=== PATIENT | male | born 1940 | race Caucasian/White ===

== ENCOUNTER 2016-09-25 10:30 | Day surgery (SDC) | payer MEDICARE, BC ==
[2016-09-24 11:50] VITALS: BMI 18.3
[~2016-09-25 10:30] MED LIST: LACTATED RINGERS 1,000 ML IV SCH
[2016-09-25 11:58] VITALS: TEMP 97.8
[2016-09-25] MEDS ORDERED: LIDOCAINE 1% 20 ML VIAL (10MG/ML) FOR IV START INTRADERMA ONE (12:09)
[2016-09-25] MEDS ORDERED: PROPOFOL 10 MG/ML 20 ML VIAL IV ONE (12:41)
[2016-09-25] MEDS ORDERED: hydrALAZINE HCL 20 MG/ML 1 ML VIAL ONE (12:41)
--- NOTE | 2016-09-25 13:10 | P.PCN ---
Date of Procedure: 09/25/16 Preoperative Diagnosis: Postoperative Diagnosis: Procedure(s) Performed: Brief history: Patient is a pleasant 76-year-old white male, scheduled for an elective upper endoscopy as well as colonoscopy as a part of evaluation of chronic diarrhea, abdominal pain and progressive weight loss for the last 6 months duration. He has bowel movements between 5-6 a day, loose to watery in consistency, no blood in the stool. He lost 25 pounds since onset of the symptoms. Procedure performed: Esophagogastroduodenoscopy with biopsy Colonoscopy with biopsy Preoperative diagnosis: Abdominal pain Chronic diarrhea and progressive weight loss Anesthesia: MAC Procedure: After informed consent was obtained from the patient was brought into the endoscopy unit and IV sedation was administered by anesthesia under continuous monitoring. Initially upper endoscopy was done. The Olympus GF 160 video endoscope was inserted inserted into the mouth and esophagus intubated without any difficulty and was gradually advanced into the stomach and duodenum and carefully examined. The bulb and second part of the duodenum appeared normal. There are scattered diverticulosis noted in the second/third part of the duodenum. Biopsies were done from the duodenum to evaluate for celiac disease. The scope was then withdrawn into the stomach adequately insufflated with air and upon careful examination was performed. The antrum had scattered erosions and biopsies were done from this area. The body, cardia and fundus appeared normal. The scope was then withdrawn into the esophagus. The GE junction was located at 40 cm to the incisors. It appeared regular with no erythema erosions or ulcerations. Rest of the esophagus appeared normal. Patient tolerated the procedure well. At this time the patient continued to remain sedation. Initial digital rectal examination was normal. Olympus CF 160 video colonoscope was then inserted into the rectum and gradually advanced to the cecum without any difficulty. Careful examination was performed as the scope was gradually being withdrawn. The prep was excellent. The cecum, ascending colon, transverse colon, descending colon, sigmoid colon and rectum appeared normal. Scattered diffuse diverticulosis seen. Random biopsies were done from ascending and descending colon to rule out microscopic/collagenous colitis. Retroflexion was performed in the rectum and grade 2 internal hemorrhoids were noted. Patient tolerated the procedure well. Impression: 1. Upper endoscopy revealed duodenal diverticulosis, mild antral gastritis. 2. Colonoscopy revealed scattered diffuse diverticulosis and small internal hemorrhoids. No evidence of colitis or colorectal neoplasia. Recommendations: Findings of this examination were discussed with the patient as well as his family. He was advised to follow with the biopsy results and he'll be seen in office in 2-3 weeks.] Implants: Indications for Procedure: Operative Findings: Description of Procedure:
[2016-09-25 13:12] VITALS: RESP 18
[2016-09-25 13:30] VITALS: BP 151/77; PULSE 67
== END 2016-09-25 13:46 | disposition home or self-care (01) ==
LOC: ORWHC2ENDO 10:30
PROVIDERS: ATTEND Internal Medicine Gastroenterology
DX: K57.10 Diverticulosis of small intestine without perforation or abscess without bleeding (principal); K57.30 Diverticulosis of large intestine without perforation or abscess without bleeding; K29.70 Gastritis, unspecified, without bleeding; K64.1 Second degree hemorrhoids; E78.5 Hyperlipidemia, unspecified; Z85.118 Personal history of other malignant neoplasm of bronchus and lung; Z72.0 Tobacco use; F03.90 Unspecified dementia, unspecified severity, without behavioral disturbance, psychotic disturbance, mood disturbance, and anxiety; F39 Unspecified mood [affective] disorder; Z79.82 Long term (current) use of aspirin; Z79.899 Other long term (current) drug therapy
CPT/HCPCS: 88305; 45380; 43239; J0360; J2704

== ENCOUNTER → 2017-12-10 | Outpatient (CLI) | payer MEDICARE, BC ==
--- NOTE | 2017-12-15 11:49 | CT ---
EXAMINATION TYPE: CT chest w con DATE OF EXAM: 12/10/2017 COMPARISON: 06/01/2016 HISTORY: Follow up to lung CA CT DLP: 514 mGycm, Automated exposure control for dose reduction was used. CONTRAST: Performed injected with 100 mL of Isovue 300. TECHNIQUE: Axial images were obtained at 5 mm thick sections. Reconstructed images are reviewed on [employer] computer in the coronal plane. FINDINGS: Portion of the thyroid visualized is normal. No suspicious lung nodules or focal infiltrates are present. Emphysematous changes are evident. There is a focus of increased density in the posterior right midlung which is nonspecific. However, this i s a new finding from comparison. The patient's history metastatic disease is not excluded. Series 4 i mage 34. Stable punctate 0.3 cm nodule posterior lateral left lung base. Series 2 is present previous ly. The previous right lower lobe spiculated mass adjacent to the thoracic spine Current examination. There multiple shotty lymph nodes within the superior mediastinum and pretracheal space. At the leve l of the evelyn there is a 1.0 cm pretracheal lymph node. This has enlarged from the comparison. No e nlarged hilar adenopathy. No additional enlarged adenopathy is evident. The ascending aorta diameter at the level of the main pulmonary artery is 3.2 cm. The main pulmonary artery diameter at the bifurcation is 2.[address] sections are obtained through the upper abdomen. Abdomen is essentially unremarkable. Adre nal gland is stable. IMPRESSIONS: 1. Interval development of some pneumonitis type change in the posterior right midlung. This is near the patient's previous cancer could be related to surgery. Monitoring is recommended. 2. No enlarging or new appearing additional nodules are evident. 3. Enlarging pretracheal mediastinal lymph node currently measuring 1.0 cm. Additional shotty lymphad enopathy is present within the mediastinum discussed above.
== END | disposition home or self-care (01) ==
LOC: RADCTMAIN 11:06
PROVIDERS: ATTEND Internal Medicine
DX: C34.90 Malignant neoplasm of unspecified part of unspecified bronchus or lung (principal); J18.9 Pneumonia, unspecified organism; R59.0 Localized enlarged lymph nodes; Z13.89 Encounter for screening for other disorder
CPT/HCPCS: 82565; 84520; 71260; 36415; Q9967

== ENCOUNTER → 2018-01-08 | Outpatient (CLI) | payer MEDICARE, BC ==
--- NOTE | 2018-01-09 16:38 | PE ---
EXAMINATION TYPE: PET CT fusion skull to thigh DATE OF EXAM: 01/08/2018 COMPARISON: Chest CT 02/19/2018 Prior PET/CT: None HISTORY: Lung cancer TECHNIQUE: Following the intravenous administration of 13.205 mCi of F-18 FDG, whole body images are performed from the skull base to the midthigh. Images are reviewed on the computer in the coronal, axial, and sagittal planes. Reconstructed rotating images are created on independent workstation and reviewed on the computer. A localization and attenuation correction CT is performed in conjunction with the PET scan. DLP: 244.69 mGycm SCAN: Initial Blood glucose: 85 mg/dL Average Mediastinum SUV: 1.57 Average Liver SUV: 2.2 FINDINGS: NECK: No abnormal uptake THORAX: No abnormal uptake. The area of pneumonitis is too indistinct for PET CT evaluation. Mediasti nal lymph node in the pretracheal space above the evelyn does not have elevated SUV by PET/CT. Interm ediate 1.35. ABDOMEN: No abnormal uptake PELVIS: No abnormal uptake OSSEOUS STRUCTURES: No abnormal uptake LOCALIZATION CT: Ascending thoracic aorta at the level the main pulmonary artery is 3.5 cm patent shane n pulmonary bifurcation is 2.3 cm. Shotty lymphadenopathy is within the mediastinum. Moderate severe coronary artery calcifications present. Adrenal glands appear unremarkable. Diverticular changes are present within the colon without evidence of acute diverticulitis. Emphysematous changes are within t he lung [place]. COMPARISON: Area of pneumonitis is again identified within the posterior right midlung. SUV value is low measuring 0.93 cm. This could be inflammatory in nature. Given the pneumonitis type appearance, t his may be below the threshold for detection for PET CT and monitoring is recommended. In addition co ntinued change additional workup could be performed. Punctate nodule within the periphery of the left lung base is too small to classify this has an SUV value of 0.43. Suspicious uptake within the enlar ging mediastinal lymph node is not identified. SUV value is 1.35. IMPRESSION: 1. No suspicious uptake to suggest primary or metastatic neoplasm. 2. Findings within the lung [place] are likely below the threshold for PET CT evaluation. Monitoring w ith CT chest is recommended. 3. The enlarged 1.0 cm lymph node appears less prominent on the current examination and has intermedi ate signal 1.35 SUV. Monitoring with chest CT is recommended.
== END | disposition home or self-care (01) ==
LOC: RADPETMAIN 14:07
PROVIDERS: ATTEND Internal Medicine Pulmonary Disease
DX: C34.31 Malignant neoplasm of lower lobe, right bronchus or lung (principal); R59.0 Localized enlarged lymph nodes
CPT/HCPCS: 78815; A9552

== ENCOUNTER → 2019-06-24 | Outpatient (CLI) | payer MEDICARE, BC ==
--- NOTE | 2019-06-26 13:42 | PE ---
Nuclear medicine PET/CT HISTORY: Lung cancer, subsequent Patient received 11.1 mCi F-18 FDG intravenously in delayed scanning was performed from skull base to the mid thighs. Localization and attenuation correction CT scan was performed. Correlation to prior nuclear medicine PET/CT 01/08/2018 neck and CHEST: In the right lower lobe there is a smoothly marginated subpleural nodule which extend s into the pleural margin and intercostal space measuring approximately 2 cm in size, there is associ ated hypermetabolic uptake, SUV 6.6. There is no pleural or pericardial effusion. No mediastinal, axi llary, or hilar adenopathy, no supraclavicular or cervical adenopathy. ABDOMEN: There is no adrenal mass, no liver mass, no retroperitoneal adenopathy or suspicious hyperme tabolic uptake. Extensive diverticular change associated with the sigmoid colon. Patient is likely po st prostatectomy. Osseous structures: There is a lytic lesion involving the acetabulum on the left anteriorly which has developed in the interval, there is associated hypermetabolic uptake, SUV is 14.2. IMPRESSION: Findings consistent with metastatic disease. Lesion in the left acetabulum would be breann ble to biopsy should be requested.
== END | disposition home or self-care (01) ==
LOC: RADPETMAIN 13:15
PROVIDERS: ATTEND Internal Medicine Hematology & Oncology
DX: M25.852 Other specified joint disorders, left hip (principal); C34.31 Malignant neoplasm of lower lobe, right bronchus or lung
CPT/HCPCS: 78815; A9552

== ENCOUNTER → 2019-08-01 | Outpatient (CLI) | payer MEDICARE, BC ==
--- NOTE | 2019-08-01 13:37 | MR ---
EXAMINATION TYPE: MR brain wo/w con DATE OF EXAM: 08/01/2019 1:29 PM COMPARISON: NONE HISTORY: Lung CA CONTRAST: Patient received 6.5 mL intravenous Gadavist gadolinium contrast. Multiplanar and multispin-echo imaging of the brain was performed . Pre and post contrast enhanced i mages are obtained. The ventricles, basal cisterns and sulci overlying the cerebral convexities are mildly enlarged. There is evidence of mild periventricular white matter ischemic demyelination. Remote deep white matter insults are also noted. Remote insult left temporal lobe. No acute edema is seen on diffusion weighted imaging. There is no evidence for midline shift or mass effect. Acute intracranial hemorrhage or extra-axial collection is not evident. No enhancing lesions are seen. The paranasal sinuses and mastoid air cells are well-aerated. IMPRESSION: Age-related atrophic and chronic small vessel ischemic change. No acute intracranial process at this time. No enhancing lesions are seen.
== END | disposition home or self-care (01) ==
LOC: RADMRIMAIN 11:35
PROVIDERS: ATTEND Radiology Radiation Oncology
DX: I67.82 Cerebral ischemia (principal); G31.1 Senile degeneration of brain, not elsewhere classified; F17.210 Nicotine dependence, cigarettes, uncomplicated; C79.51 Secondary malignant neoplasm of bone; C34.31 Malignant neoplasm of lower lobe, right bronchus or lung; Z92.3 Personal history of irradiation
CPT/HCPCS: 70553; A9585

== ENCOUNTER → 2019-09-15 | Outpatient (CLI) | payer MEDICARE, BC ==
--- NOTE | 2019-09-17 13:42 | PE ---
EXAMINATION TYPE: PET CT fusion skull to thigh DATE OF EXAM: 09/15/2019 COMPARISON: CT chest 12/10/2017 Prior PET/CT: 08/01/2019 HISTORY: C 34.31, lung cancer, left hip cancer TECHNIQUE: Following the intravenous administration of 11.99 mCi of F-18 FDG, whole body images are performed from the skull base to the midthigh. Images are reviewed on the computer in the coronal, a xial, and sagittal planes. Reconstructed rotating images are created on independent workstation and reviewed on the computer. A localization and attenuation correction CT is performed in conjunction with the PET scan. DLP: 310.97 mGycm SCAN: Subsequent Blood glucose: 96 mg/dL Average Mediastinum SUV: 1.21 Average Liver SUV: 1.68 FINDINGS: NECK: No suspicious radiotracer accumulation. THORAX: There is a small area of increased signal within the mid posterior esophageal region which is nonspecific. Some mild inflammatory change should be considered. Consider reflux. SUV values 1.7. On the sagittal plane images this appears more elongated and less suggestive for early metastasis. There is a focus of radiotracer in the subcarinal region. The SUV value 1.9 appears focal with a smal l lymph node. A small metastasis should be considered. Image 90. There is some thickening along the pleural margin with increased radiotracer along posterior right mi dlung. This has an SUV value of 2.65 which can be compatible with neoplasm. Image 93. Previous value 6.26. Some additional less specific increased uptake is within the posterior area of increased densit y in the right lung. Image 102. This has an SUV value of 1.65 but can be suspicious for metastasis. M ild uptake is within the pleural margin adjacent to these regions. ABDOMEN: No abnormal uptake PELVIS: No abnormal uptake within the soft tissues. Please see osseous structures for additional disc ussion. OSSEOUS STRUCTURES: There is intense uptake within the superior left acetabulum with an SUV value of 11.04. This is diminished from 06/24/2019 with an SUV value of 12.69 This is compatible with a large m etastatic lesion. This corresponds to the lytic lesion on the bone windows of the localization CT. LOCALIZATION CT: The lytic lesion is evident within the superior anterior left acetabulum. COMPARISON: Radiotracer within the posterior right pleural margin is diminished in intensity over the interval. The radiotracer at the subcarinal region appears to be an interval development. What is schaeffer spected be within the esophagus although other etiologies are within the differential also appears to be new. Acetabular uptake previously had an SUV value of 12.69. IMPRESSION: 1. Stable appearance of left acetabular metastatic lesion. 2. Diminished radiotracer accumulation within the posterior right pleural margin neoplasm. 3. Interval development of some very mild intermediate to slight increased uptake within the subcarin al lymph node and either early changes within the posterior mediastinal lymph node or the esophagus.
== END | disposition home or self-care (01) ==
LOC: RADPETMAIN 09:09
PROVIDERS: ATTEND Internal Medicine Hematology & Oncology
DX: C79.51 Secondary malignant neoplasm of bone (principal); R59.9 Enlarged lymph nodes, unspecified; C34.31 Malignant neoplasm of lower lobe, right bronchus or lung
CPT/HCPCS: 78815; A9552

== ENCOUNTER → 2019-12-01 | Outpatient (CLI) | payer MEDICARE, BC ==
--- NOTE | 2019-12-02 15:28 | PE ---
EXAMINATION TYPE: PET CT fusion skull to thigh DATE OF EXAM: 12/01/2019 COMPARISON: CT chest 12/10/2017 Prior PET/CT: 09/15/2019 HISTORY: Right lung cancer TECHNIQUE: Following the intravenous administration of 10.87 mCi of F-18 FDG, whole body images are performed from the skull base to the midthigh. Images are reviewed on the computer in the coronal, a xial, and sagittal planes. Reconstructed rotating images are created on independent workstation and reviewed on the computer. A localization and attenuation correction CT is performed in conjunction with the PET scan. DLP: 286.50 mGycm SCAN: Subsequent Blood glucose: 99 mg/dL Average Mediastinum SUV: 1.49 Average Liver SUV: 1.85 FINDINGS: NECK: There is a right supraclavicular lymph node with an SUV value 5.95 suspicious for metastatic d isease. Image 70. There is a right paratracheal lymph node in the supraclavicular region with an SUV value 8.68 suspicious for metastatic disease. Image 75. An adjacent superior mediastinal lymph node i s present on PET image 77, SUV value 7.03. THORAX: A posterior focus of radiotracer accumulation is present may be within the esophagus or withi n the posterior lymph node. Image 91. SUV value 8.81. Pretracheal lymph node has increased uptake with an SUV value of 3.5. PET i mage 97. Prominent subcarinal lymph node has SUV value 9.77. Image 104. There is mild infiltrate along the posterior right midlung with intermediate signal likely inflammato ry in nature. Correlate for atelectasis. ABDOMEN: No abnormal uptake PELVIS: No abnormal uptake OSSEOUS STRUCTURES: There is a focus of radiotracer accumulation within the right aspect of the right sided L1 vertebral body with an SUV value of 13.32. This correlates with a lytic lesion CT. There is a focus of radiotracer accumulation within the anterior superior iliac spine, image 200 SUV value 3. 84. Marked increase signal is within the anterior left superior acetabular region compatible for meta static lesion measuring 14.25 SUV. This correlates with a lytic lesion on bone imaging LOCALIZATION CT: Lytic lesions correspond to the areas of radiotracer accumulation within the osseous structures. COMPARISON: Supraclavicular adenopathy mediastinal adenopathy is new. Subtle uptake may have been pre sent previously within the subcarinal region. Previous increased uptake has more intermediate signal within the posterior right midlung on the current exam. Osseous metastases within the vertebral body is new. Left ileal lesion is larger on the current exam. IMPRESSION: 1. New left supraclavicular and superior mediastinal lymphadenopathy. 2. Increased uptake in a subcarinal lymph node. 3. There may be some new posterior mediastinal lymphadenopathy. 4. Increased size of left acetabular lytic lesion. 5. New L1 vertebral body lytic lesion.
== END | disposition home or self-care (01) ==
LOC: RADPETMAIN 08:43
PROVIDERS: ATTEND Internal Medicine Hematology & Oncology
DX: R59.0 Localized enlarged lymph nodes (principal); M25.859 Other specified joint disorders, unspecified hip; C34.31 Malignant neoplasm of lower lobe, right bronchus or lung
CPT/HCPCS: 78815; A9552

== ENCOUNTER → 2020-01-04 | Outpatient (CLI) | payer MEDICARE, BC | END | disposition home or self-care (01) | LOC: LABWHC1 12:38 | PROVIDERS: ATTEND Internal Medicine Hematology & Oncology | DX: Z03.818 Encounter for observation for suspected exposure to other biological agents ruled out (principal) | CPT/HCPCS: U0003; C9803 ==

== ENCOUNTER → 2020-01-09 | Outpatient (CLI) | payer MEDICARE, BC | END | disposition home or self-care (01) | LOC: LABWHC1 10:12 | PROVIDERS: ATTEND Internal Medicine Hematology & Oncology | DX: Z03.818 Encounter for observation for suspected exposure to other biological agents ruled out (principal) | CPT/HCPCS: U0003 ×2; C9803 ×2 ==

== ENCOUNTER 2020-01-15 08:41 | Emergency (ER) | payer MEDICARE, BC ==
[2020-01-15] MEDS ORDERED: SODIUM CHLORIDE 0.9% 500 ML 500 ML IV STA (09:04)
[2020-01-15] MEDS ORDERED: MORPHINE SULFATE 4 MG/ML SYRINGE IV STA (09:04)
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
[2020-01-15 09:24] LABS: Basophils % (A) 0 %; Eosinophils # (A) 0.2 k/uL (0-0.7); Eosinophils % (A) 2 %; HCT 46.5 % (39.0-53.0); HGB 15.1 gm/dL (13.0-17.5); Lymphocytes # (A) 0.6 k/uL (1.0-4.8); Lymphocytes % (A) 6 %; MCH 29.7 pg (25.0-35.0); MCHC 32.6 g/dL (31.0-37.0); Mean Platelet Volume 7.3; Monocytes # (A) 0.1 k/uL (0-1.0); Monocytes % (A) 1 %; Neutrophils # (A) 9.4 k/uL (1.3-7.7); Neutrophils % (A) 90 %; Platelet Count 321 k/uL (150-450); RBC 5.11 m/uL (4.30-5.90); RDW 13.4 % (11.5-15.5); WBC 10.4 k/uL (3.8-10.6)
[2020-01-15 09:33] LABS: ALT 21 U/L (4-49); AST 28 U/L (17-59); African American GFR (CKD) >90 (>60 ml/min/1.73 sqM); Alkaline Phosphatase 113 U/L (38-126); Amylase 206 U/L (30-110); Anion Gap 10 mmol/L; Blood Urea Nitrogen 20 mg/dL (9-20); Carbon Dioxide 25 mmol/L (22-30); Chloride 103 mmol/L (98-107); Glucose 114 mg/dL (74-99); Non-African American GFR(CKD) 83 (>60 ml/min/1.73 sqM); Potassium 4.5 mmol/L (3.5-5.1); Sodium 138 mmol/L (137-145); Total Bilirubin 0.6 mg/dL (0.2-1.3); Total Protein 7.2 g/dL (6.3-8.2)
[2020-01-15 09:37] LABS: Partial Thromboplastin Time 23.3 sec (22.0-30.0); Prothrombin Time 9.9 sec (9.0-12.0)
--- NOTE | 2020-01-15 10:28 | CT ---
EXAMINATION TYPE: CT abdomen pelvis w con DATE OF EXAM: 01/15/2020 COMPARISON: PET CT fusion 12/01/2019 HISTORY: abdominal pain CT DLP: 648.1 mGycm CONTRAST: CT scan of the abdomen and pelvis is performed without Oral Contrast and with IV Contrast, patient in jected with 100 mL of Isovue 300. FINDINGS: LUNG BASES-: No visible nodule. Right basilar pleural thickening noted. LIVER/GB: No calcified gallstones. No space occupying hepatic lesion. Biliary tree is of normal ca liber. PANCREAS: No inflammation. No distinct mass. SPLEEN: No splenic enlargement. No lesion seen. ADRENALS: No nodule. No thickening. KIDNEYS/BLADDER: No hydronephrosis. No nephrolithiasis. No distinct renal mass. Urinary bladder g rossly unremarkable. BOWEL: Nonvisualization of the appendix. Moderate sigmoid diverticulosis without diverticulitis. Mild fluid distended small bowel is nonspecific. Correlate for enteritis. No inflammation. GENITAL ORGANS: No gross abnormality. LYMPH NODES: No greater than 1cm abdominal or pelvic lymph nodes are appreciated. AORTA: No significant abnormality. OSSEOUS STRUCTURES: Destructive left acetabular lesion. Left iliac lesion. Right L1 vertebral body le chidi. OTHER: No significant additional abnormality is seen. IMPRESSION: 1. Mild fluid distended small bowel is nonspecific. Correlate for enteritis. 2. Osseous metastatic disease.
--- NOTE | 2020-01-15 10:32 | XR ---
EXAMINATION TYPE: XR KUB DATE OF EXAM: 01/15/2020 10:04 AM CLINICAL HISTORY: History of lung cancer on chemotherapy with abdominal pain. TECHNIQUE: Two Upright KUB images of the abdomen are obtained. COMPARISON: Same day CT. FINDINGS: Scattered gas is seen in non-distended stomach and small bowel loops. Gas and fecal materia l is seen in non-distended colon. Surgical clips in the bilateral pelvis are redemonstrated. No pneum operitoneum. Suspect tiny right pleural effusion or pleural thickening. Multilevel spurring in the vi sualized spine. IMPRESSION: Overall nonobstructive bowel gas pattern.
[2020-01-15 10:35] LABS: Appearance,Urine Clear (Clear); Bilirubin,Urine Negative (Negative); Blood,Urine Small (Negative); Color,Urine Light Yellow; Glucose,Urine (UA) Negative (Negative); Ketones,Urine 1+ (Negative); Leukocyte Esterase,Urine Negative (Negative); Mucus,Urine Rare /hpf; Nitrite,Urine Negative (Negative); Protein,Urine Negative (Negative); RBC,Urine 2 /hpf (0-5); Specific Gravity,Urine 1.016 (1.001-1.035); Urobilinogen,Urine <2.0 mg/dL (<2.0); WBC,Urine 1 /hpf (0-5)
[2020-01-15] MEDS ORDERED: MORPHINE SULFATE 4 MG/ML SYRINGE IV PRN (10:48)
[2020-01-15] MEDS ORDERED: ONDANSETRON 4 MG/2 ML VIAL IVP PRN (10:48)
[2020-01-15] MEDS ORDERED: NALOXONE 0.4 MG/ML 1 ML VIAL IV PRN (10:48)
[2020-01-15] MEDS ORDERED: ACETAMINOPHEN TAB 325 MG TAB PO PRN (10:48)
[2020-01-15] MEDS ORDERED: SODIUM CHLORIDE 0.9% 1,000 ML IV SCH (11:00)
[2020-01-15 13:01] VITALS: BP 154/69; PULSE 72; RESP 16; TEMP 98.8
== END 2020-01-15 13:08 | disposition other institution (70) ==
LOC: EC 08:41 → 6NMEDSUR 10:49 → UNDOADMIN 10:49 → EC 13:08
DX: K52.9 Noninfective gastroenteritis and colitis, unspecified (principal); E86.0 Dehydration; I10 Essential (primary) hypertension; C34.90 Malignant neoplasm of unspecified part of unspecified bronchus or lung; F17.200 Nicotine dependence, unspecified, uncomplicated; Z79.82 Long term (current) use of aspirin; Z79.899 Other long term (current) drug therapy
CPT/HCPCS: 99285; 96374; 96361 ×3; 36415; 80053; 82150; 83605; 83690; 85025; 85610; 85730; 81001; 74018; 74177; J2270; Q9967

== ENCOUNTER 2020-01-16 17:08 | Inpatient (IN) | payer MEDICARE, BC ==
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
[2020-01-16] MEDS ORDERED: ONDANSETRON 4 MG/2 ML VIAL IVP STA (17:41)
[2020-01-16] MEDS ORDERED: SODIUM CHLORIDE 0.9% 1,000 ML IV STA (17:41)
[2020-01-16] MEDS ORDERED: PANTOPRAZOLE 40 MG/10 ML VIAL IVP STA (17:41)
[2020-01-16] MEDS ORDERED: ONDANSETRON 4 MG/2 ML VIAL IVP PRN (17:42)
[2020-01-16] MEDS ORDERED: LORazepam 2 MG/ML INJ IV PRN (17:42)
[2020-01-16] MEDS ORDERED: HYDROmorphone 1 MG/ML 1 ML SYRINGE IVP PRN (17:42)
[2020-01-16] MEDS ORDERED: NALOXONE 0.4 MG/ML 1 ML VIAL IV PRN (17:42)
[2020-01-16 18:20] LABS: Basophils % (A) 0 %; Eosinophils # (A) 0.1 k/uL (0-0.7); Eosinophils % (A) 1 %; HCT 42.7 % (39.0-53.0); Lymphocytes # (A) 0.4 k/uL (1.0-4.8); Lymphocytes % (A) 3 %; MCH 29.1 pg (25.0-35.0); MCHC 32.8 g/dL (31.0-37.0); MCV 88.8 fL (80.0-100.0); Mean Platelet Volume 7.3; Monocytes # (A) 0.2 k/uL (0-1.0); Monocytes % (A) 1 %; Neutrophils % (A) 94 %; Platelet Count 291 k/uL (150-450); RBC 4.81 m/uL (4.30-5.90); WBC 12.7 k/uL (3.8-10.6)
[2020-01-16 18:28] LABS: ALT 16 U/L (4-49); AST 24 U/L (17-59); African American GFR (CKD) >90 (>60 ml/min/1.73 sqM); Albumin 3.6 g/dL (3.5-5.0); Alkaline Phosphatase 94 U/L (38-126); Amylase 79 U/L (30-110); Anion Gap 6 mmol/L; Blood Urea Nitrogen 27 mg/dL (9-20); Calcium 8.9 mg/dL (8.4-10.2); Carbon Dioxide 26 mmol/L (22-30); Chloride 102 mmol/L (98-107); Glucose 127 mg/dL (74-99); Non-African American GFR(CKD) >90 (>60 ml/min/1.73 sqM); Potassium 4.6 mmol/L (3.5-5.1); Sodium 134 mmol/L (137-145); Total Bilirubin 0.6 mg/dL (0.2-1.3); Total Protein 6.4 g/dL (6.3-8.2)
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
[2020-01-17] MEDS: SODIUM CHLORIDE 0.9% 1,000 ML IV SCH ×2 (05:21→09:44)
[2020-01-17] MEDS ORDERED: traMADol 50 MG TAB PO PRN (05:30)
[2020-01-17] MEDS: lisinopriL 20 MG TAB PO SCH (06:00)
[2020-01-17] MEDS: HYDROmorphone 0.5 MG/0.5 ML SYRINGE IVP PRN ×4 (06:06→20:20)
[2020-01-17 08:54] LABS: RBC 4.72 m/uL (4.30-5.90); WBC 9.9 k/uL (3.8-10.6)
[2020-01-17 08:55] LABS: Basophils % (A) 0 %; Eosinophils # (A) 0.2 k/uL (0-0.7); Eosinophils % (A) 2 %; HCT 43.2 % (39.0-53.0); HGB 13.8 gm/dL (13.0-17.5); Lymphocytes # (A) 0.7 k/uL (1.0-4.8); Lymphocytes % (A) 7 %; MCH 29.1 pg (25.0-35.0); MCHC 31.8 g/dL (31.0-37.0); MCV 91.5 fL (80.0-100.0); Mean Platelet Volume 7.1; Monocytes # (A) 0.2 k/uL (0-1.0); Monocytes % (A) 2 %; Neutrophils # (A) 8.8 k/uL (1.3-7.7); Neutrophils % (A) 89 %; Platelet Count 283 k/uL (150-450); RDW 13.2 % (11.5-15.5)
[2020-01-17] MEDS: PANTOPRAZOLE 40 MG/10 ML VIAL IV SCH (09:36)
[2020-01-17] MEDS: HEPARIN SODIUM,PORCINE 5,000 UNIT/ML 1 ML VIAL SQ SCH ×3 (09:36→23:28)
[2020-01-17 12:57] VITALS: BMI 21.6
[2020-01-17] MEDS: LACTULOSE 20 GM/30 ML CUP PO SCH ×2 (13:11→22:31)
--- NOTE | 2020-01-17 15:21 | P.PN ---
Subjective Progress Note Date: 01/17/20 This is an 79 year old male with a previous medical history significant for hypertension and hypertensive cardiovascular disease, was diagnosed with with non small cell lung cancer in 2018 and underwent right lower lobectomy, and has done well till he was diagnosed with bone mets thought to be single lesion initially and was treated with radiation therapy, then he was confirmed to have metastatic disease and he was supposed to start chemotherapy in august but it was delayed due to concerns of COVID-19, finally was started on Alimta Keytruda, and I believe Taxotere on Wednesday as the first treatment, later on Wednesday he developed to have increased abdominal pain in the epigastric area then moved to the left lower quadrant with increased nausea, and vomiting, was not able to keep anything down, and was associated with diarrhea, he came to the ER Yesterday and had a CT scan of the abdomen and pelvis with contrast that showed non specific enetrits, and his Lipase was elevated he was advised to stay but he decided to leave, went and saw today and he was sent back to the ER for admission for acute pancreatitis and he was started on IV fluids and pain medications. 01/16: Patient has been afebrile, heart rate 70, blood pressure 146/71, pulse ox 96% on room air. Repeat CBC reveals normal WBC at 9.9, hemoglobin 13.8, platelet count 283. Consult in place with oncology. Patient is currently on a clear liquid diet and tolerating well. No nausea or vomiting at this time. He has had a bowel movement after lactulose was started today and he is feeling much better following that. Bowel movement was formed. No diarrhea. Incentive spirometry added as well as consult with PT and OT. Fentanyl patch was applied in the emergency center on January 14. Patient is due for a new patch tomorrow which will be ordered. Anticipate possible discharge in the next 24-48 hours depending on how patient progresses. Objective - Vital Signs Vital signs: Vital Signs Temp 98.1 F 01/17/20 12:05 Pulse 70 01/17/20 12:05 Resp 16 01/17/20 12:05 BP 146/71 01/17/20 12:05 Pulse Ox 96 01/17/20 12:05 Intake & Output 01/16/20 01/17/20 01/17/20 18:59 06:59 18:59 Intake Total 1000 Balance 1000 Weight 58.967 kg 58.967 kg Intake: Intake, IV Titration 1000 Amount Sodium Chloride 0.9% 1, 1000 000 ml @ 130 mls/hr IV . [id number] STA Rx#:[id number] Other: Voiding Method Toilet # Voids 1 - Exam Review of Systems Constitutional: Reports anorexia, Reports fatigue, Reports weakness Eyes: denies blurred vision, denies bulging eye, denies decreased vision Ears, nose, mouth and throat: Denies dysphagia, Denies neck lump, Denies sore throat Cardiovascular: Denies chest pain, Denies decreased exercise tolerance, Denies dyspnea on exertion, Denies lightheadedness, Denies rapid heart beat, Denies shortness of breath, Denies syncope Respiratory: Denies congestion, Denies cough, Denies cough with sputum, Denies home oxygen, Denies sleep apnea, Denies snoring, Denies wheezing Gastrointestinal: Reports abdominal painimproving, Reports change in bowel habits, denies diarrhea, Reports dyspepsia, Reports indigestion, Reports loss of appetite, denies nausea, denies vomiting, Denies belching, Denies bloating, Denies hematemesis, Denies hematochezia, Denies jaundice, Denies lactose intolerance, Denies melena Genitourinary: Reports nocturia, Denies dysuria Musculoskeletal: Reports muscle weakness, Denies fractures, Denies frequent falls, Denies low back pain Musculoskeletal: right: shoulder pain, shoulder stiffness, absent: ankle pain, ankle stiffness, ankle swelling, elbow pain, elbow stiffness, elbow swelling, foot pain, foot stiffness, foot swelling, hand pain, hand stiffness, hand swelling, hip pain, hip stiffness, hip swelling, knee pain, knee stiffness, shoulder swelling, wrist pain, wrist stiffness, wrist swelling Integumentary: Denies pruritus, Denies rash Neurological: Denies numbness, Denies weakness Psychiatric: Denies anxiety, Denies depression Endocrine: Denies fatigue, Denies weight change Physical Examination HEENT: head is atraumatic normocephalic pupils were equal round reactive to light and accommodations extra ocular muscle movements were intact. Neck: supple, no JVP. Chest: decrease breath sounds at the bases with few ronchi no expiratory wheezes, no chest wall tenderness or intercostal retraction. Heart: first heart sound is depressed, second heart sound is normal there is CASSIE 2/6 located in the left sternal border. Abdomen: soft, no tenderness, no rebound or guarding positive bowel sounds. Extremities: there is no edema or calf tenderness DP +1 Bilaterally. Neurologic examination: patient is awake alert and oriented X 3 CN II-XII are grossly intact muscle power 4/5 in upper and lower extremities bilaterally. - Labs CBC & Chem 7: 01/17/20 08:14 01/16/20 18:08 Labs: Abnormal Lab Results - Last 24 Hours (Table) 01/16/20 01/16/20 01/17/20 Range/Units 18:08 18:08 08:14 WBC 12.7 H (3.8-10.6) k/uL Neutrophils # 12.0 H 8.8 H (1.3-7.7) k/uL Lymphocytes # 0.4 L 0.7 L (1.0-4.8) k/uL Sodium 134 L (137-145) mmol/L BUN 27 H (9-20) mg/dL Glucose 127 H (74-99) mg/dL Assessment and Plan Plan: 1. Acute abdominal pain due to acute pancreatitis post chemotherapy as a possible side effects of Alimta with non specific enteritis. Continue IVF normal saline at 100 ml/h, we will continue with clear liquids, and Zofran 4 mg IVP Q 6 hours as needed, we will continue with current pain management. Patient improved following bowel movement and lactulose. 2. Leukocytosis likely reactive to pancreatitis . we will continue with IVF and we will repeat cbc in AM. 4. Mild hyponatremia due to hypovolemia and poor oral intake of fluid. we will continue with IVF and repeat CMP in AM. 5. Metastatic non small cell lung cancer to the left hip, L1 and pelvic area. post radiation and first treatment on Wednesday. Consult with oncology. 6. Hypertension and hypertensive cardiovascular disease. we will continue with Lisinopril 40 mg orally daily. 7. Hyperlipidemia. we will continue with Lipitor 40 mg orally daily. 8. Right carotid stenosis post stenting. we will continue with ASA 81 mg orally daily and Lipitor 40 mg orally daily. 9. Tremors. we will continue with primidone 100 mg orally daily, 10. Chronic tobacco use and dependence. smoking cessation and counseling. 11. DVT prophylaxis. we will start Heparin 5000 units SC Q 8 hours. 12. GI prophylaxis. we will continue with Protonix 40 mg IVP daily. 13. Chronic pain. Fentanyl patch to be replaced tomorrow. Discharge plan: To be determined, most likely return home. PT and OT added. Impression and plan of care have been directed as dictated by the signing physician. Radha Tomas nurse practitioner acting as scribe for signing physician.
[2020-01-17 17:37] LABS: African American GFR (CKD) 102.6 (60.0-200.0); Albumin 3.8 g/dL (3.80-4.90); Albumin/Globulin Ratio 1.9 (1.60-3.17); Anion Gap 11.4 mmol/L (4.00-12.00); BUN/Creat Ratio 31.43 Ratio (12.00-20.00); Calcium 8.5 mg/dL (8.7-10.3); Carbon Dioxide 23.6 mmol/L (21.6-31.8); Non-African American GFR(CKD) 88.5 (60.0-200.0); Potassium 4.7 mmol/L (3.5-5.5); Total Bilirubin 0.6 mg/dL (0.2-1.2); Total Protein 5.8 g/dL (6.2-8.2)
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
[2020-01-17] MEDS: ASPIRIN 81 MG PO SCH (22:00)
[2020-01-17] MEDS: PRIMIDONE 50 MG TAB PO SCH (22:00)
[2020-01-17] MEDS: ATORVASTATIN 40 MG TAB PO SCH (22:00)
[2020-01-18] MEDS: SODIUM CHLORIDE 0.9% 1,000 ML IV SCH ×3 (01:41→20:29)
[2020-01-18] MEDS: HYDROmorphone 0.5 MG/0.5 ML SYRINGE IVP PRN (04:52)
[2020-01-18 05:44] LABS: Basophils % (A) 1 %; Eosinophils # (A) 0.1 k/uL (0-0.7); Eosinophils % (A) 2 %; HCT 37.9 % (39.0-53.0); HGB 12.5 gm/dL (13.0-17.5); Lymphocytes # (A) 0.4 k/uL (1.0-4.8); Lymphocytes % (A) 9 %; MCH 29.6 pg (25.0-35.0); MCHC 32.9 g/dL (31.0-37.0); MCV 89.9 fL (80.0-100.0); Monocytes # (A) 0.2 k/uL (0-1.0); Monocytes % (A) 3 %; Neutrophils # (A) 4.2 k/uL (1.3-7.7); Neutrophils % (A) 85 %; Platelet Count 201 k/uL (150-450); RBC 4.22 m/uL (4.30-5.90); RDW 12.8 % (11.5-15.5)
[2020-01-18] MEDS: lisinopriL 20 MG TAB PO SCH (07:10)
[2020-01-18] MEDS: FOLIC ACID 1 MG TAB PO SCH (07:10)
[2020-01-18] MEDS: HEPARIN SODIUM,PORCINE 5,000 UNIT/ML 1 ML VIAL SQ SCH ×2 (07:10→15:41)
[2020-01-18] MEDS: PANTOPRAZOLE 40 MG/10 ML VIAL IV SCH (07:10)
[2020-01-18] MEDS: LACTULOSE 20 GM/30 ML CUP PO SCH ×2 (07:11→20:28)
[2020-01-18 10:31] LABS: African American GFR (CKD) 109.3 (60.0-200.0); Albumin 3.3 g/dL (3.80-4.90); Albumin/Globulin Ratio 2.06 (1.60-3.17); Anion Gap 9.1 mmol/L (4.00-12.00); BUN/Creat Ratio 28.33 Ratio (12.00-20.00); Calcium 7.6 mg/dL (8.7-10.3); Carbon Dioxide 23.9 mmol/L (21.6-31.8); Globulin 1.6 g/dL (1.6-3.3); Non-African American GFR(CKD) 94.3 (60.0-200.0); Potassium 3.8 mmol/L (3.5-5.5); Total Bilirubin 0.5 mg/dL (0.2-1.2); Total Protein 4.9 g/dL (6.2-8.2)
--- NOTE | 2020-01-18 13:45 | P.PN ---
Subjective Progress Note Date: 01/18/20 This is an 79 year old male with a previous medical history significant for hypertension and hypertensive cardiovascular disease, was diagnosed with with non small cell lung cancer in 2018 and underwent right lower lobectomy, and has done well till he was diagnosed with bone mets thought to be single lesion initially and was treated with radiation therapy, then he was confirmed to have metastatic disease and he was supposed to start chemotherapy in august but it was delayed due to concerns of COVID-19, finally was started on Alimta Keytruda, and I believe Taxotere on Wednesday as the first treatment, later on Wednesday he developed to have increased abdominal pain in the epigastric area then moved to the left lower quadrant with increased nausea, and vomiting, was not able to keep anything down, and was associated with diarrhea, he came to the ER Yesterday and had a CT scan of the abdomen and pelvis with contrast that showed non specific enetrits, and his Lipase was elevated he was advised to stay but he decided to leave, went and saw today and he was sent back to the ER for admission for acute pancreatitis and he was started on IV fluids and pain medications. 01/16: Patient has been afebrile, heart rate 70, blood pressure 146/71, pulse ox 96% on room air. Repeat CBC reveals normal WBC at 9.9, hemoglobin 13.8, platelet count 283. Consult in place with oncology. Patient is currently on a clear liquid diet and tolerating well. No nausea or vomiting at this time. He has had a bowel movement after lactulose was started today and he is feeling much better following that. Bowel movement was formed. No diarrhea. Incentive spirometry added as well as consult with PT and OT. Fentanyl patch was applied in the emergency center on January 14. Patient is due for a new patch tomorrow which will be ordered. Anticipate possible discharge in the next 24-48 hours depending on how patient progresses. 01/17: Patient has been afebrile, heart rate 72, blood pressure 148/70, pulse ox 96% on room air. WBC 5.0, hemoglobin 12.5. Electrolytes normal. Creatinine 0.6. Patient states that he had a rough night was up around 4 AM with increasing abdominal pain that he rated as a 10+. This continued for about 4-5 hours and he is feeling a little bit better now. He denies any nausea vomiting. He is passing a small amount of gas. No bowel movement today. He is on a clear liquid diet and tolerating and will be advanced to soft. He is urinating without difficulty. He has some left lower quadrant tenderness. Dietitian consult added. Patient's relates that he is under palliative care in the outpatient setting prior to admission. guard manager updated. Objective - Vital Signs Vital signs: Vital Signs Temp 98.3 F 01/18/20 04:31 Pulse 76 01/18/20 04:31 Resp 17 01/18/20 04:31 BP 181/78 01/18/20 04:31 Pulse Ox 93 L 01/18/20 04:31 Intake & Output 01/17/20 01/18/20 01/18/20 18:59 06:59 18:59 Intake Total 800 1200 Balance 800 1200 Weight 58.967 kg Intake: Intake, IV Titration 800 1200 Amount Sodium Chloride 0.9% 1, 800 1200 000 ml @ 100 mls/hr IV . Q10H [facility] Rx#:[id number] Other: Voiding Method Toilet Toilet # Voids 1 1 # Bowel Movements 3 - Exam Review of Systems Constitutional: Reports anorexia, Reports fatigue, Reports weakness Eyes: denies blurred vision, denies bulging eye, denies decreased vision Ears, nose, mouth and throat: Denies dysphagia, Denies neck lump, Denies sore throat Cardiovascular: Denies chest pain, Denies decreased exercise tolerance, Denies dyspnea on exertion, Denies lightheadedness, Denies rapid heart beat, Denies shortness of breath, Denies syncope Respiratory: Denies congestion, Denies cough, Denies cough with sputum, Denies home oxygen, Denies sleep apnea, Denies snoring, Denies wheezing Gastrointestinal: Reports abdominal painimproving, Reports change in bowel habits, denies diarrhea, Reports dyspepsia, Reports indigestion, denies loss of appetite, denies nausea, denies vomiting, Denies belching, Denies bloating, Denies hematemesis, Denies hematochezia, Denies jaundice, Denies lactose intolerance, Denies melena Genitourinary: Reports nocturia, Denies dysuria Musculoskeletal: Reports muscle weakness, Denies fractures, Denies frequent falls, Denies low back pain Musculoskeletal: right: shoulder pain, shoulder stiffness, absent: ankle pain, ankle stiffness, ankle swelling, elbow pain, elbow stiffness, elbow swelling, foot pain, foot stiffness, foot swelling, hand pain, hand stiffness, hand swelling, hip pain, hip stiffness, hip swelling, knee pain, knee stiffness, shoulder swelling, wrist pain, wrist stiffness, wrist swelling Integumentary: Denies pruritus, Denies rash Neurological: Denies numbness, Denies weakness Psychiatric: Denies anxiety, Denies depression Endocrine: Denies fatigue, Denies weight change Physical Examination HEENT: head is atraumatic normocephalic pupils were equal round reactive to light and accommodations extra ocular muscle movements were intact. Neck: supple, no JVP. Chest: decrease breath sounds at the bases with few ronchi no expiratory wheezes, no chest wall tenderness or intercostal retraction. Heart: first heart sound is depressed, second heart sound is normal there is CASSIE 2/6 located in the left sternal border. Abdomen: soft, left lower quadrant tenderness, no rebound or guarding positive bowel sounds. Extremities: there is no edema or calf tenderness DP +1 Bilaterally. Neurologic examination: patient is awake alert and oriented X 3 CN II-XII are grossly intact muscle power 4/5 in upper and lower extremities bilaterally. - Labs CBC & Chem 7: 01/18/20 04:56 01/18/20 04:56 Labs: Abnormal Lab Results - Last 24 Hours (Table) 01/17/20 01/18/20 01/18/20 Range/Units 08:14 04:56 04:56 RBC 4.22 L (4.30-5.90) m/uL Hgb 12.5 L (13.0-17.5) gm/dL Hct 37.9 L (39.0-53.0) % Lymphocytes # 0.4 L (1.0-4.8) k/uL BUN/Creatinine Ratio 31.43 H 28.33 H (12.00-20.00) Ratio Calcium 8.5 L 7.6 L (8.7-10.3) mg/dL Total Protein 5.8 L 4.9 L (6.2-8.2) g/dL Albumin 3.30 L (3.80-4.90) g/dL Assessment and Plan Plan: 1. Acute abdominal pain due to acute pancreatitis post chemotherapy as a possible side effects of Alimta with non specific enteritis. Continue IVF normal saline at 100 ml/h, advance to soft and Zofran 4 mg IVP Q 6 hours as needed, we will continue with current pain management. Patient improved follo wing bowel movement and lactulose. 2. Leukocytosis likely reactive to pancreatitis . we will continue with IVF and we will repeat cbc in AM. 4. Mild hyponatremia due to hypovolemia and poor oral intake of fluid. we will continue with IVF and repeat CMP in AM. 5. Metastatic non small cell lung cancer to the left hip, L1 and pelvic area. post radiation and first treatment on Wednesday. Consult with oncology. 6. Hypertension and hypertensive cardiovascular disease. we will continue with Lisinopril 40 mg orally daily. 7. Hyperlipidemia. we will continue with Lipitor 40 mg orally daily. 8. Right carotid stenosis post stenting. we will continue with ASA 81 mg orally daily and Lipitor 40 mg orally daily. 9. Tremors. we will continue with primidone 100 mg orally daily, 10. Chronic tobacco use and dependence. smoking cessation and counseling. 11. DVT prophylaxis. we will start Heparin 5000 units SC Q 8 hours. 12. GI prophylaxis. we will continue with Protonix 40 mg IVP daily. 13. Chronic pain. Fentanyl patch to be replaced tomorrow. 14. Moderate protein calorie malnutrition. Dietitian consult. Advance diet to soft. Discharge plan: Home with palliative care.. PT and OT added. Impression and plan of care have been directed as dictated by the signing physician. Radha Tomas nurse practitioner acting as scribe for signing physician.
--- NOTE | 2020-01-18 20:00 | P.PN ---
Subjective Progress Note Date: 01/18/20 The patient was drowsy but arousable. He appeared quite comfortable on exam. He stated that he had increased abdominal pain with bloating and cramps early in the a.m. with subsequent improvement. He denied any diarrhea, or nausea. He states that appetite is still diminished. Crampy pain does appear to be exacerbated by oral intake. Objective - Vital Signs Vital signs: Vital Signs Temp 97.7 F 01/18/20 12:56 Pulse 72 01/18/20 12:56 Resp 18 01/18/20 12:56 BP 148/70 01/18/20 12:56 Pulse Ox 96 01/18/20 12:56 Intake & Output 01/18/20 01/18/20 01/19/20 06:59 18:59 06:59 Intake Total 1200 Balance 1200 Intake: Intake, IV Titration 1200 Amount Sodium Chloride 0.9% 1, 1200 000 ml @ 100 mls/hr IV . Q10H [facility] Rx#:[id number] Other: Voiding Method Toilet Toilet # Voids 1 2 - Constitutional General appearance: Present: no acute distress - EENT Eyes: Present: EOMI ENT: Present: hearing grossly normal, normal oropharynx - Respiratory Respiratory: bilateral: CTA - Cardiovascular Rhythm: regular Heart sounds: normal: S1, S2 - Gastrointestinal General gastrointestinal: Present: normal bowel sounds, soft Localized gastrointestinal: tender: RLQ (Mild), LLQ (Mild) - Integumentary Integumentary: Present: normal - Neurologic Neurologic: Present: CNII-XII intact - Musculoskeletal Musculoskeletal: Present: generalized weakness, strength equal bilaterally - Psychiatric Psychiatric: Present: A&O x's 3 - Labs CBC & Chem 7: 01/18/20 04:56 01/18/20 04:56 Labs: Abnormal Lab Results - Last 24 Hours (Table) 01/18/20 01/18/20 Range/Units 04:56 04:56 RBC 4.22 L (4.30-5.90) m/uL Hgb 12.5 L (13.0-17.5) gm/dL Hct 37.9 L (39.0-53.0) % Lymphocytes # 0.4 L (1.0-4.8) k/uL BUN/Creatinine Ratio 28.33 H (12.00-20.00) Ratio Calcium 7.6 L (8.7-10.3) mg/dL Total Protein 4.9 L (6.2-8.2) g/dL Albumin 3.30 L (3.80-4.90) g/dL Assessment and Plan (1) Abdominal pain Narrative/Plan: The patient continues to have abdominal pain though this is improved partially. He still has exacerbations with eating and appetite is still diminished. Continue clear liquids at this time. Etiology is more likely related to pancreatitis. Enteritis from immunotherapy is unlikely, as the patient is not having any significant diarrhea. Lipase has normalized. Patient was advised to symptom improvement may lag behind. Continue hydration Current Visit: Yes Status: Acute Code(s): R10.9 - UNSPECIFIED ABDOMINAL PAIN SNOMED Code(s): 33097311 (2) Adenocarcinoma, lung Narrative/Plan: The patient is status post 1 cycle of chemotherapy. It is possible that his presentation, due to pancreatitis could be a chemotherapy side effect. However given in that case there are several options for continuation of treatment including dose reduction or change of agent. Therefore the plan would be to continue treatment once acute condition is resolved. Monitor counts for any major drop due to chemotherapy. Current Visit: Yes Status: Acute Code(s): C34.90 - MALIGNANT NEOPLASM OF UNSP PART OF UNSP BRONCHUS OR LUNG SNOMED Code(s): 553932848
[2020-01-18] MEDS: PRIMIDONE 50 MG TAB PO SCH (20:27)
[2020-01-18] MEDS: ATORVASTATIN 40 MG TAB PO SCH (20:27)
[2020-01-18] MEDS: ASPIRIN 81 MG PO SCH (20:27)
[2020-01-19 05:11] LABS: Basophils % (A) 1 %; Eosinophils # (A) 0.1 k/uL (0-0.7); Eosinophils % (A) 3 %; HCT 35.2 % (39.0-53.0); HGB 11.9 gm/dL (13.0-17.5); Lymphocytes # (A) 0.5 k/uL (1.0-4.8); Lymphocytes % (A) 21 %; MCH 30.4 pg (25.0-35.0); MCHC 33.9 g/dL (31.0-37.0); MCV 89.6 fL (80.0-100.0); Mean Platelet Volume 7.2; Monocytes # (A) 0.2 k/uL (0-1.0); Monocytes % (A) 9 %; Neutrophils # (A) 1.6 k/uL (1.3-7.7); Neutrophils % (A) 63 %; Platelet Count 157 k/uL (150-450); RBC 3.92 m/uL (4.30-5.90); RDW 12.8 % (11.5-15.5); WBC 2.5 k/uL (3.8-10.6)
[2020-01-19] MEDS: LACTULOSE 20 GM/30 ML CUP PO SCH (08:11)
[2020-01-19] MEDS: FOLIC ACID 1 MG TAB PO SCH (08:12)
[2020-01-19] MEDS: PANTOPRAZOLE 40 MG/10 ML VIAL IV SCH (08:12)
[2020-01-19] MEDS: lisinopriL 20 MG TAB PO SCH (08:12)
[2020-01-19] MEDS: HEPARIN SODIUM,PORCINE 5,000 UNIT/ML 1 ML VIAL SQ SCH ×2 (08:12)
[2020-01-19] MEDS: SODIUM CHLORIDE 0.9% 1,000 ML IV SCH (08:24)
[2020-01-19 13:19] VITALS: BP 161/76; PULSE 74; RESP 18; TEMP 99.3
--- NOTE | 2020-01-19 13:41 | P.PN ---
<Zeenat Jurado - Last Filed: 01/19/20 18:13> Subjective Progress Note Date: 01/19/20 Principal diagnosis: Enterititis on immune therapy Very anxious for discharge, will advance diet if tolerates wihtout pain or nausea ok to discharge from our standpoint. Will need follow-up in office Objective - Vital Signs Vital signs: Vital Signs Temp 99.3 F 01/19/20 13:00 Pulse 74 01/19/20 13:00 Resp 18 01/19/20 13:00 BP 161/76 01/19/20 13:00 Pulse Ox 95 01/19/20 13:00 Intake & Output 01/18/20 01/19/20 01/19/20 18:59 06:59 18:59 Intake Total 192 Balance 1919 Weight 58.967 kg Intake: Intake, IV Titration 1200 Amount Sodium Chloride 0.9% 1, 1200 000 ml @ 100 mls/hr IV . Q10H [facility] Rx#:[id number] Oral 720 Other: Voiding Method Toilet Toilet Toilet # Voids 2 2 # Bowel Movements 1 - Labs CBC & Chem 7: 01/19/20 04:50 01/18/20 04:56 Labs: Abnormal Lab Results - Last 24 Hours (Table) 01/19/20 Range/Units 04:50 WBC 2.5 L (3.8-10.6) k/uL RBC 3.92 L (4.30-5.90) m/uL Hgb 11.9 L (13.0-17.5) gm/dL Hct 35.2 L (39.0-53.0) % Lymphocytes # 0.5 L (1.0-4.8) k/uL Assessment and Plan (1) Adenocarcinoma, lung Status: Acute Code(s): C34.90 - MALIGNANT NEOPLASM OF UNSP PART OF UNSP BRONCHUS OR LUNG SNOMED Code(s): 302132382 Plan: Assessment and Recommendations: Metastatic Lung Cancer: to Bone - Status Post cycle one of Carboplatin, Almta, Keytruda, and ZOmeta on 01/12/20 - On hold until acute issues resolves - Continue on Folic acid with recent treatment almta Enteritis: - Complaints of abdominal pain, nausea and vomiting - Initially elevated Lipase, since resolved - Supportive Care and symptom management - Cannot rule out immune related side effect - Monitor on clear liquid diet and await repeat assessment in am Plan: - Advance diet and if no pain or nausea ok for discharge and follow-up 1 week in office <Augusto Drew - Last Filed: 01/21/20 20:39> Objective - Vital Signs Vital signs: Vital Signs Temp 99.3 F 01/19/20 13:00 Pulse 74 01/19/20 13:00 Resp 18 01/19/20 13:00 BP 161/76 01/19/20 13:00 Pulse Ox 95 01/19/20 13:00 - Labs CBC & Chem 7: 01/19/20 04:50 01/18/20 04:56 Assessment and Plan (1) Abdominal pain Status: Acute Code(s): R10.9 - UNSPECIFIED ABDOMINAL PAIN SNOMED Code(s): 54835012 (2) Adenocarcinoma, lung Status: Acute Code(s): C34.90 - MALIGNANT NEOPLASM OF UNSP PART OF UNSP BRONCHUS OR LUNG SNOMED Code(s): 637162401 Plan: As above Pt improved. For D/C. Less likely immune mediated enteritis as no diarrhea. F/U with Dr River prior to next chemo. D/w pt and how to advance diet
--- NOTE | 2020-01-19 15:05 | P.DS ---
Providers Date of admission: 01/16/20 17:42 Expected date of discharge: 01/19/20 Attending physician: Roxi Carmona Consults: 01/16/20 17:43 Consult Physician Urgent Consulting Provider: David River Consult Reason/Comments: Oncological care Do you want consulting provider notified?: Already Contacted [facility]: This is an 79 year old male with a previous medical history significant for hypertension and hypertensive cardiovascular disease, was diagnosed with with non small cell lung cancer in 2018 and underwent right lower lobectomy, and has done well till he was diagnosed with bone mets thought to be single lesion initially and was treated with radiation therapy, then he was confirmed to have metastatic disease and he was supposed to start chemotherapy in august but it was delayed due to concerns of COVID-19, finally was started on Alimta Keytruda, and I believe Taxotere on Wednesday as the first treatment, later on Wednesday he developed to have increased abdominal pain in the epigastric area then moved to the left lower quadrant with increased nausea, and vomiting, was not able to keep anything down, and was associated with diarrhea, he came to the ER Yesterday and had a CT scan of the abdomen and pelvis with contrast that showed non specific enetrits, and his Lipase was elevated he was advised to stay but he decided to leave, went and saw today and he was sent back to the ER for admission for acute pancreatitis and he was started on IV fluids and pain medications. 01/16: Patient has been afebrile, heart rate 70, blood pressure 146/71, pulse ox 96% on room air. Repeat CBC reveals normal WBC at 9.9, hemoglobin 13.8, platelet count 283. Consult in place with oncology. Patient is currently on a clear liquid diet and tolerating well. No nausea or vomiting at this time. He has had a bowel movement after lactulose was started today and he is feeling much better following that. Bowel movement was formed. No diarrhea. Incentive spirometry added as well as consult with PT and OT. Fentanyl patch was applied in the emergency center on January 14. Patient is due for a new patch tomor row which will be ordered. Anticipate possible discharge in the next 24-48 hours depending on how patient progresses. 01/17: Patient has been afebrile, heart rate 72, blood pressure 148/70, pulse ox 96% on room air. WBC 5.0, hemoglobin 12.5. Electrolytes normal. Creatinine 0.6. Patient states that he had a rough night was up around 4 AM with increasing abdominal pain that he rated as a 10+. This continued for about 4-5 hours and he is feeling a little bit better now. He denies any nausea vomiting. He is passing a small amount of gas. No bowel movement today. He is on a clear liquid diet and tolerating and will be advanced to soft. He is urinating without difficulty. He has some left lower quadrant tenderness. Dietitian consult added. Patient's relates that he is under palliative care in the outpatient setting prior to admission. 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 01/18: Patient has been cleared for discharge by oncology with planned follow-up in the office if he tolerates regular diet. Patient is upset today and requesting to go home as soon as possible. Abdominal pain resolved, no cramps, no nausea or vomiting. Prescription sent for 1 Fentanyl Patch and Start Talking form completed. OD Risk 200. Patient's at bedside and all questions answered. Patient will be discharged home today in stable condition. Discharge diagnoses: 1. Acute abdominal pain due to acute pancreatitis post chemotherapy as a possible side effects of Alimta with non specific enteritis. 2. Leukocytosis likely reactive to pancreatitis. 4. Mild hyponatremia due to hypovolemia and poor oral intake of fluid. 5. Metastatic non small cell lung cancer to the left hip, L1 and pelvic area. post radiation and first treatment on Wednesday. 6. Hypertension and hypertensive cardiovascular disease. 7. Hyperlipidemia. 8. Right carotid stenosis post stenting. 9. Tremors. 10. Chronic tobacco use and dependence. smoking cessation and counseling. 11. Chronic pain. 12. Moderate protein calorie malnutrition. Discharge plan: Home with [facility]. Impression and plan of care have been directed as dictated by the signing physician. Radha Tomas nurse practitioner acting as scribe for signing physician. Patient Condition at Discharge: Good Plan - Discharge Summary Discharge Rx Participant: No New Discharge Prescriptions: New Lactulose [Cephulac] 30 gm PO BID #900 ml fentaNYL 25MCG/HR PATCH [Duragesic 25MCG/HR] 1 patch TRANSDERM Q72H #1 patch Folic Acid 1 mg PO DAILY tab Continue Atorvastatin [Lipitor] 40 mg PO HS Primidone [Mysoline] 100 mg PO HS Aspirin [Adult Low Dose Aspirin EC] 81 mg PO HS lisinopriL 40 mg PO DAILY traMADol HCL 50 mg PO TID PRN PRN Reason: Pain Ondansetron [Zofran] 4 mg PO Q4H PRN PRN Reason: Nausea Discharge Medication List Aspirin [Adult Low Dose Aspirin EC] 81 mg PO HS 09/24/16 [History] Atorvastatin [Lipitor] 40 mg PO HS 09/24/16 [History] Primidone [Mysoline] 100 mg PO HS 09/24/16 [History] Ondansetron [Zofran] 4 mg PO Q4H PRN 01/15/20 [History] lisinopriL 40 mg PO DAILY 01/15/20 [History] traMADol HCL 50 mg PO TID PRN 01/15/20 [History] Folic Acid 1 mg PO DAILY tab 01/19/20 [Rx] Lactulose [Cephulac] 30 gm PO BID #900 ml 01/19/20 [Rx] fentaNYL 25MCG/HR PATCH [Duragesic 25MCG/HR] 1 patch TRANSDERM Q72H #1 patch 01/19/20 [Rx] Follow up Appointment(s)/Referral(s): [facility], [NON-STAFF] - 1 Week David River MD [Primary Care Provider] - 01/24/20 11:00 am (with Zeenat Jurado NP.) Patient Instructions/Handouts: Pancreatitis (DC), Lung Cancer (DC), Intravenous Chemotherapy (DC) Discharge Disposition: HOME SELF-CARE
== END 2020-01-19 15:10 | disposition home health service (06) | DRG 393 ==
LOC: EC 17:08 → 6NMEDSUR 17:42
PROVIDERS: ADMIT Internal Medicine; ATTEND Internal Medicine
DX: K52.1 Toxic gastroenteritis and colitis (principal); K85.30 Drug induced acute pancreatitis without necrosis or infection; C34.90 Malignant neoplasm of unspecified part of unspecified bronchus or lung; E44.0 Moderate protein-calorie malnutrition; E87.1 Hypo-osmolality and hyponatremia; C79.51 Secondary malignant neoplasm of bone; T45.1X5A Adverse effect of antineoplastic and immunosuppressive drugs, initial encounter; Z68.21 Body mass index [BMI] 21.0-21.9, adult; E78.5 Hyperlipidemia, unspecified; E86.0 Dehydration; E86.1 Hypovolemia; F17.210 Nicotine dependence, cigarettes, uncomplicated; F32.9 Major depressive disorder, single episode, unspecified; G89.29 Other chronic pain; I11.9 Hypertensive heart disease without heart failure; I65.21 Occlusion and stenosis of right carotid artery; R25.1 Tremor, unspecified; Z66 Do not resuscitate; Z79.82 Long term (current) use of aspirin; Z79.899 Other long term (current) drug therapy; Z82.49 Family history of ischemic heart disease and other diseases of the circulatory system; Z85.46 Personal history of malignant neoplasm of prostate; Z90.79 Acquired absence of other genital organ(s); Z90.2 Acquired absence of lung [part of]; Z71.6 Tobacco abuse counseling
CPT/HCPCS: 36415; 74018; 74177; 80053; 81001; 82150; 82533; 83605; 83615; 83690; 85025; 85610; 85730; 96361; 96374; 96375; 99284; 99285

== ENCOUNTER 2020-04-17 15:35 | Emergency (ER) | payer MEDICARE, BC ==
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
[2020-04-17 17:41] LABS: Basophils # (A) 0.1 k/uL (0-0.2); Basophils % (A) 1 %; Eosinophils # (A) 0.1 k/uL (0-0.7); Eosinophils % (A) 1 %; HCT 43.2 % (39.0-53.0); HGB 14.3 gm/dL (13.0-17.5); Lymphocytes # (A) 0.9 k/uL (1.0-4.8); Lymphocytes % (A) 9 %; MCH 30.7 pg (25.0-35.0); MCHC 33.2 g/dL (31.0-37.0); MCV 92.5 fL (80.0-100.0); Mean Platelet Volume 7.1; Monocytes # (A) 0.4 k/uL (0-1.0); Monocytes % (A) 4 %; Neutrophils # (A) 8.6 k/uL (1.3-7.7); Neutrophils % (A) 85 %; Platelet Count 216 k/uL (150-450); RBC 4.67 m/uL (4.30-5.90); RDW 15.4 % (11.5-15.5); WBC 10.2 k/uL (3.8-10.6)
[2020-04-17 17:45] LABS: Appearance,Urine Clear (Clear); Bacteria,Urine Rare /hpf; Bilirubin,Urine Negative (Negative); Blood,Urine Small (Negative); Color,Urine Yellow; Glucose,Urine (UA) Negative (Negative); Hyaline Casts,Urine 1 /lpf (0-2); Ketones,Urine Negative (Negative); Leukocyte Esterase,Urine Negative (Negative); Mucus,Urine Rare /hpf; Nitrite,Urine Negative (Negative); PH, Urine 5.5 (5.0-8.0); Protein,Urine Trace (Negative); RBC,Urine 2 /hpf (0-5); Specific Gravity,Urine 1.021 (1.001-1.035); Squamous Epithelial Cell,Urine <1 /hpf (0-4); Urobilinogen,Urine <2.0 mg/dL (<2.0); WBC,Urine 4 /hpf (0-5)
[2020-04-17 17:52] LABS: ALT 36 U/L (4-49); AST 34 U/L (17-59); African American GFR (CKD) >90 (>60 ml/min/1.73 sqM); Albumin 3.4 g/dL (3.5-5.0); Alcohol <10 mg/dL; Alkaline Phosphatase 84 U/L (38-126); Amphetamine Screen,Urine Not Detected (NotDetected); Anion Gap 2 mmol/L; Barbiturate Screen,Urine Detected (NotDetected); Benzodiazepines Screen,Urine Detected (NotDetected); Blood Urea Nitrogen 37 mg/dL (9-20); Calcium 8.9 mg/dL (8.4-10.2); Carbon Dioxide 26 mmol/L (22-30); Chloride 106 mmol/L (98-107); Cocaine Screen,Urine Not Detected (NotDetected); Glucose 88 mg/dL (74-99); Methadone Screen, Urine Not Detected (NotDetected); Non-African American GFR(CKD) >90 (>60 ml/min/1.73 sqM); Opiate Screen,Urine Not Detected (NotDetected); Oxycodone Screen, Urine Not Detected (NotDetected); Phencyclidine Screen,Urine Not Detected (NotDetected); Potassium 5.3 mmol/L (3.5-5.1); Sodium 134 mmol/L (137-145); Total Bilirubin 0.9 mg/dL (0.2-1.3); Total Protein 6.2 g/dL (6.3-8.2); Tricyclic Antidepressant,Urine Not Detected (NotDetected); Urn Cannabinoid Scrn Not Detected (NotDetected)
[2020-04-17] MEDS ORDERED: LORazepam 1 MG TAB PO ONE (19:25)
[2020-04-17] MEDS ORDERED: traMADol 50 MG TAB PO STA (19:30)
[2020-04-17 20:12] VITALS: BP 158/83; PULSE 86; RESP 18; TEMP 96.8
== END 2020-04-17 20:12 | disposition home or self-care (01) ==
LOC: EC 15:35
DX: C34.90 Malignant neoplasm of unspecified part of unspecified bronchus or lung (principal); F43.20 Adjustment disorder, unspecified; I10 Essential (primary) hypertension; E78.5 Hyperlipidemia, unspecified; M19.90 Unspecified osteoarthritis, unspecified site; F32.9 Major depressive disorder, single episode, unspecified; F17.200 Nicotine dependence, unspecified, uncomplicated; Z79.82 Long term (current) use of aspirin; Z79.899 Other long term (current) drug therapy; Z90.2 Acquired absence of lung [part of]
CPT/HCPCS: 82075; 36415; 80053; 85025; 81001; 80306; 99285; G0480; 80320